=== PATIENT | female | born 1970 | race Caucasian/White ===

== ENCOUNTER 2019-03-30 13:30 | Emergency (ER) | payer OTHER ==
[2019-03-30] MEDS ORDERED: HYDROmorphone 2 MG/ML SDV IVPUSH ONE ×2 (13:49→15:36)
--- NOTE | 2019-03-30 13:49 | EDM.PDOC ---
ED HPI GENERAL MEDICAL PROBLEM - General Chief Complaint: Lower Extremity Injury/Pain Stated Complaint: LT FOOT INJURY Time Seen by Provider: 03/30/19 13:35 Source of Information: Reports: Patient History Limitations: Reports: No Limitations - History of Present Illness INITIAL COMMENTS - FREE TEXT/NARRATIVE: pt comes shortly after accidental fall at home, she slipped and fell, c/o sever 01/29 non radiating pain behind left thigh area, denies any other injuries or any other medical concerns. pt at menopause and has Hx of depression and restless leg syndrome. . LEFT THIGH Pain Score (Numeric/FACES): 10 - Related Data Allergies Allergy/AdvReac Type Severity Reaction Status Date / Time No Known Allergies Allergy Verified 03/30/19 13:42 Review of Systems - Review of Systems Review Of Systems: See Below Constitutional: Reports: No Symptoms Respiratory: Reports: No Symptoms Cardiovascular: Reports: No Symptoms GI/Abdominal: Reports: No Symptoms Musculoskeletal: Reports: Leg Pain. Denies: Muscle Pain, Muscle Stiffness Skin: Reports: No Symptoms ED EXAM, GENERAL - Physical Exam Exam: See Below Exam Limited By: No Limitations General Appearance: Alert, Moderate Distress, Severe Distress Nose: Normal Inspection Head: Atraumatic, Normocephalic Respiratory/Chest: No Respiratory Distress, Lungs Clear, Normal Breath Sounds Cardiovascular: Normal Peripheral Pulses, Regular Rate, Rhythm, No Edema, No Murmur GI/Abdominal: Normal Bowel Sounds, Soft, Non-Tender Back Exam: Normal Inspection, Full Range of Motion Extremities: Normal Inspection (tender with movement of left hip and on palpation of left thigh area, rest of LLE exam is nl. ) Neurological: Alert, Oriented, CN II-XII Intact Psychiatric: Normal Affect Skin Exam: Warm Course - Vital Signs Text/Narrative:: xray shows no acute findings, supportive mng for LLE strain injury was recommended. pt is comfortable after Dilaudid. Last Recorded V/S: Last Vital Signs Temp 36.7 C 03/30/19 13:30 Pulse 99 03/30/19 13:30 Resp 17 03/30/19 13:30 BP 145/99 H 03/30/19 13:30 Pulse Ox 98 03/30/19 13:30 - Orders/Labs/Meds Meds: Medications Discontinued Medications Generic Name Dose Route Start Last Admin Trade Name Freq PRN Reason Stop Dose Admin Hydromorphone HCl 1 mg 03/30/19 13:49 03/30/19 13:58 Dilaudid IVPUSH 03/30/19 13:50 1 mg ONETIME ONE Administration Departure - Departure Time of Disposition: 15:36 Disposition: Home, Self-Care 01 Clinical Impression: Strain of hip and thigh - Discharge Information Forms: ED Department Discharge
--- NOTE | 2019-03-30 15:04 | CR ---
INDICATION: Hip pain after a fall. PELVIS WITH LEFT HIP: Two frontal views of the pelvis with a frontal and lateral view of the left hip were obtained 03/30/19 and revealed degenerative changes of mild to moderate degree at the left sacroiliac joint and mild degree at the right sacroiliac joint. A fracture, dislocation, or other acute bone or joint abnormality was not suggested. There are some calcific or bony densities adjacent to the lateral iliac wings in the area of the buttocks, most likely representing injection sites. IMPRESSION: 1. No acute fracture or dislocation. 2. Osteoarthritis sacroiliac joints, left greater than right. MTDD
--- NOTE | 2019-03-30 15:08 | CR ---
INDICATION: Hip pain after a fall. LEFT FEMUR: Four views of the left femur were obtained revealing no evidence of an acute fracture, dislocation, or other significant appearing bone or joint abnormality, except for degenerative changes at the left sacroiliac joint. A small bony density is noted at the greater trochanter on the left, which may represent a dystrophic calcification of soft tissue after a previous soft tissue injury or possibly an ununited previous chip fracture fragment - no acute chip fracture fragment is seen in that area. MTDD
== END 2019-03-30 16:34 | disposition home or self-care (01) ==
LOC: FB.ED 13:30
DX: S76.012A Strain of muscle, fascia and tendon of left hip, initial encounter (principal); S76.912A Strain of unspecified muscles, fascia and tendons at thigh level, left thigh, initial encounter; W01.0XXA Fall on same level from slipping, tripping and stumbling without subsequent striking against object, initial encounter; Y92.009 Unspecified place in unspecified non-institutional (private) residence as the place of occurrence of the external cause
CPT/HCPCS: 73502; 73552; 96374; 96376; 99283; J1170

== ENCOUNTER 2022-06-20 09:23 | Day surgery (SDC) | payer OTHER ==
[2022-06-20] MEDS ORDERED: Propofol 200 MG/20 ML SDV IV ONE (09:24)
[2022-06-20] MEDS ORDERED: Lidocaine 2% 100 MG/5 ML Syringe IVPUSH ONE (09:24)
[2022-06-20] MEDS ORDERED: Lactated Ringers 1,000 ML IV SCH (09:30)
[2022-06-20] MEDS ORDERED: Sodium Chloride 0.9% 10 ML Syringe FLUSH PRN (09:30)
[2022-06-20] MEDS ORDERED: Simethicone Drops 40 MG/0.6 ML 30 ML Bottle PO ONE (12:13)
== END 2022-06-20 13:20 | disposition home or self-care (01) ==
LOC: FB.SDS 09:23
PROVIDERS: ATTEND Surgery
DX: Z12.11 Encounter for screening for malignant neoplasm of colon (principal); F41.9 Anxiety disorder, unspecified; F32.A Depression, unspecified; G62.9 Polyneuropathy, unspecified; G47.30 Sleep apnea, unspecified; Z80.0 Family history of malignant neoplasm of digestive organs; Z79.899 Other long term (current) drug therapy; Z98.890 Other specified postprocedural states; Z87.891 Personal history of nicotine dependence
CPT/HCPCS: 00812; A9270-GY; J2704; J7120